=== PATIENT | male | born 2000 | race Caucasian/White ===

== ENCOUNTER 2020-10-05 16:57 | Emergency (ER) | payer OTHER ==
[~2020-10-05 16:57] MED LIST: IBUPROFEN800 MG PO; NORCO 7.5-3251 EACH PO
[2020-10-05 17:58] LABS: HEMOGLOBIN 16.1 gm/dl (14.0-17.5); RED BLOOD COUNT 5.11 M/UL (4.20-5.50); WHITE BLOOD COUNT 8.9 K/UL (4.5-11.0)
[2020-10-05 18:19] LABS: BUN/CREATININE RATIO 19 (0-10)
[2020-10-05] MEDS ORDERED: HYDROCODON-ACE1 EAC4 PO (19:01)
[2020-10-05] MEDS ORDERED: NAPROXEN500 MG PO (19:05)
== END 2020-10-05 19:11 | disposition home or self-care (01) ==
LOC: ER1 16:57
PROVIDERS: Nurse Practitioner
DX: N13.2 Hydronephrosis with renal and ureteral calculous obstruction (principal); F17.210 Nicotine dependence, cigarettes, uncomplicated; Z90.89 Acquired absence of other organs; Z87.442 Personal history of urinary calculi; Z79.899 Other long term (current) drug therapy
CPT/HCPCS: 80053; 81001; 83605; 83690; 85025; 99284

== ENCOUNTER 2020-10-12 12:10 | Emergency (ER) | payer OTHER ==
[~2020-10-12 12:10] MED LIST changes: +HYDROCODON-ACE1 EAC4 PO; +NAPROXEN500 MG PO
[2020-10-12] MEDS ORDERED: BACTROBAN OINT22 GM EXT (14:27)
== END 2020-10-12 14:49 | disposition home or self-care (01) ==
LOC: ER1 12:10
DX: S61.213A Laceration without foreign body of left middle finger without damage to nail, initial encounter (principal); F17.200 Nicotine dependence, unspecified, uncomplicated; Z87.442 Personal history of urinary calculi; W26.8XXA Contact with other sharp object(s), not elsewhere classified, initial encounter
CPT/HCPCS: 12001; 90715; 99282

== ENCOUNTER → 2021-06-05 | Outpatient (CLI) | payer OTHER ==
[~2021-06-05] MED LIST changes: +BACTROBAN OINT22 GM EXT
== END ==
LOC: RAD 15:14
DX: N20.0 Calculus of kidney (principal)
CPT/HCPCS: 74018